=== PATIENT | female | born 1955 | race Caucasian/White ===

== ENCOUNTER 2018-04-16 12:31 | Outpatient (CLI) | payer BC | END 2018-04-16 12:32 | disposition home or self-care (01) | LOC: BICMAMMO 12:31 | PROVIDERS: ATTEND Obstetrics & Gynecology | DX: Z12.31 Encounter for screening mammogram for malignant neoplasm of breast (principal); Z80.3 Family history of malignant neoplasm of breast | CPT/HCPCS: 77063; 77067 ==

== ENCOUNTER 2018-06-13 08:52 | Outpatient (CLI) | payer BC ==
[2018-06-13] MEDS ORDERED: Iopamidol 370 76% 100 ML VIAL ONE (11:18)
--- NOTE | 2018-06-13 12:05 | CT ---
CHEST CT SCAN WITHOUT IV CONTRAST: History: 53-year-old female with follow up pulmonary nodules. FINDINGS: Again noted are several very small pulmonary nodules including the left lower lobe and right upper lo be. No new nodules. Stable multiple liver cysts and scarring in the superior aspect of the left kidne y, possibly from prior surgery. No pleural effusion or pericardial effusion. Minimal dependent positi onal changes in the posterior lower lungs. IMPRESSION: Small stable pulmonary nodules. Stable renal cysts. Stable scarring of the upper left kidney. POS: [facility]
--- NOTE | 2018-06-13 12:36 | CT ---
CT ABDOMEN AND PELVIS WITH AND WITHOUT IV CONTRAST: INDICATIONS: History of renal mass, status post removal. COMPARISON: Prior CT abdomen and pelvis, with and without contrast, dated 03/25/2016, from [facility]. 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 No definite abnor mal enhancing soft tissue is evident within the surgical site. No new solid renal lesion is demonstr ated. No gross urothelial lesion is evident in the segmentally opacified ureters. The visualized pa rtially opacified bladder is unremarkable. There are small cysts involving the right kidney. There are small cysts seen throughout the liver. There is mild fatty infiltration of the liver. The spleen is at the upper limits of normal in size, measuring 11.9 cm. The pancreas is within normal limits. The adrenal glands appear within normal li mits. No free fluid or enlarged lymph nodes are evident. The visualized renal veins opacify appropriately. A small amount of free fluid is present within the pelvis, which is nonspecific. There are scattered areas of diverticula, without evidence of active diverticulitis. There is scattered degenerative an d osteoarthritic change. IMPRESSION: 1. Post surgical change of partial left nephrectomy without evidence of recurrent disease. No evide nce of metastatic disease is present within the abdomen or pelvis. No new solid renal mass is demons trated. 2. Right renal cyst. 3. Hepatic cysts. 4. Fatty infiltration of the liver. 5. Colonic diverticulosis. 6. Small, 5 mm pulmonary nodule within the left lower lobe, on image 5 of series 3, stable since 201 6, likely benign. POS: [facility]
== END 2018-06-13 08:53 | disposition home or self-care (01) ==
LOC: CT 08:52
PROVIDERS: ATTEND Internal Medicine Critical Care Medicine
DX: N28.89 Other specified disorders of kidney and ureter (principal); R91.8 Other nonspecific abnormal finding of lung field; N28.1 Cyst of kidney, acquired; K76.89 Other specified diseases of liver; K76.0 Fatty (change of) liver, not elsewhere classified; K57.32 Diverticulitis of large intestine without perforation or abscess without bleeding; Z90.5 Acquired absence of kidney
CPT/HCPCS: 71250; 74178; 82565

== ENCOUNTER 2019-05-15 08:50 | Outpatient (CLI) | payer BC ==
--- NOTE | 2019-05-15 09:29 | BD ---
DEXA BONE DENSITY STUDY: Date: 05/15/19 HISTORY: Osteoporosis screening. COMPARISON: None. FINDINGS: Lumbar Spine: BMD (g/cm2) L1 1.067 T-Score: 0.7 Z-Score: 2.2 L2 1.105 T-Score: 0.7 Z-Score: 2.4 L3 1.146 T-Score: 0.6 Z-Score: 2.3 L4 1.133 T-Score: 0.7 Z-Score: 2.5 L1-L4 1.114 T-Score: 0.6 Z-Score: 2.3 Left Femoral Neck: 0.791 T-Score: -0.5 Z-Score: 1.0 Total Femur: 0.993 T-Score: 0.4 Z-Score: 1.6 WHO Classification: Normal. IMPRESSION: Normal bone mineral density. POS: [facility]
== END 2019-05-15 08:51 | disposition home or self-care (01) ==
LOC: BICMAMMO 08:50
PROVIDERS: ATTEND Obstetrics & Gynecology
DX: Z13.820 Encounter for screening for osteoporosis (principal)
CPT/HCPCS: 77080

== ENCOUNTER 2024-10-12 18:04 | Emergency (ER) | payer MEDICARE, OTHER | END 2024-10-12 19:25 | disposition home or self-care (01) | LOC: ERS 18:04 | DX: S83.92XA Sprain of unspecified site of left knee, initial encounter (principal); X50.9XXA Other and unspecified overexertion or strenuous movements or postures, initial encounter; Y93.53 Activity, golf ==

== ENCOUNTER 2025-05-01 10:51 | Emergency (ER) | payer MEDICARE ==
[2025-05-01 11:58] LABS: Bacteria/HPF None Seen HPF (None Seen); CAUTI Indications for Culture Pelvic or flank pain; Glucose, Urine (Dipstick) Normal (Negative); Leukocyte Negative Leu/uL (Negative); Protein, Urine (Dipstick) Negative (Neg-Trace); RBC/HPF 0-3 HPF (0-3); Specific Gravity, Urine 1.010 (1.002-1.036); WBC/HPF 0-3 HPF (0-3)
[2025-05-01 12:00] LABS: Urine Culture Reflex No No
[2025-05-01 12:03] LABS: #Basophils Less than 0.03 10x3/uL (0.0-0.2); #Eosinophils 0.26 10x3/uL (0.0-0.7); #Monocytes 0.27 10x3/uL (0.11-0.59); #Neutrophils 2.67 10x3/uL (1.40-6.50); %Basophils 0.3 % (0.0-1.0); %Eosinophils 6.6 % (0.0-10.0); %Lymphocytes 17.8 % (21.0-51.0); %Monocytes 6.9 % (0.0-10.0); %Neutrophils 67.9 % (42.0-75.0); Hematocrit 43.9 % (36.0-47.0); Hemoglobin 14.6 g/dL (12.0-16.0); Mean Corpuscular Hemoglobin 30.2 pg (27.0-31.0); Mean Corpuscular Volume 90.9 fL (78.0-98.0); Platelet Count 110 10x3/uL (130-400); Red Blood Cell (RBC) Count 4.83 mill/uL (4.20-5.40); White Blood Cell (WBC) Count 3.93 10x3/uL (4.8-10.8)
[2025-05-01 12:15] LABS: ALT (SGPT) 17 U/L (Less than 34); AST (SGOT) 20 U/L (11-34); Albumin 4.5 g/dL (3.1-4.5); Alkaline Phosphatase 79 U/L (40-110); Anion Gap 13 mmol/L (10-20); BUN (Urea Nitrogen) 16 mg/dL (9.8-20.1); Bilirubin, Total 0.2 mg/dL (0.3-1.2); Calc. Creatinine Clearance 0 mL/min (70-130); Calcium 9.9 mg/dL (7.8-10.44); Carbon Dioxide 22 mmol/L (23-31); Chloride 106 mmol/L (98-107); Globulin 2.2 g/dL (2.4-3.5); Glucose 95 mg/dL (80-115); Potassium 4.2 mmol/L (3.5-5.1); Sodium 137 mmol/L (136-145)
[2025-05-01 12:46] LABS: Macrocytosis SLIGHT = 6-15 cells HPF (0-5); Platelet Adequacy Comment Platelets Decreased; RBC Morphology Within Normal Limits
== END 2025-05-01 13:34 | disposition home or self-care (01) ==
LOC: ERS 10:51
DX: R30.0 Dysuria (principal); N39.0 Urinary tract infection, site not specified
CPT/HCPCS: 74178; 80053; 81001; 85025; 87086